=== PATIENT | male | born 1955 | race Caucasian/White ===

== ENCOUNTER 2023-05-12 08:23 | Day surgery (SDC) | payer BC, OTHER ==
[~2023-05-12 08:23] MED LIST: Lactated Ringers 1,000 ML IV SCH
[2023-05-12] MEDS ORDERED: propofoL 50 ML ONE (10:12)
== END 2023-05-12 11:30 | disposition home or self-care (01) ==
LOC: MW.SDS 08:23
PROVIDERS: ATTEND Surgery
DX: Z12.11 Encounter for screening for malignant neoplasm of colon (principal); K57.30 Diverticulosis of large intestine without perforation or abscess without bleeding; F31.9 Bipolar disorder, unspecified; F17.290 Nicotine dependence, other tobacco product, uncomplicated; Z79.899 Other long term (current) drug therapy; Z91.013 Allergy to seafood
CPT/HCPCS: 45378; J2704; J7120; 00812